=== PATIENT | female | born 1970 | race Caucasian/White ===

== ENCOUNTER 2017-10-09 14:15 | Emergency (ER) | payer BC ==
[~2017-10-09] VITALS: Ht 167.6 cm; Wt 81.6 kg
[2017-10-09] MEDS ORDERED: HYDR-2966 PO (14:17)
[2017-10-09] MEDS ORDERED: LISI5TAB25 PO (14:17)
[2017-10-09] MEDS ORDERED: ESTR-33 PO (14:18)
[2017-10-09] MEDS ORDERED: THYR60TA25 PO (14:18)
[2017-10-09] MEDS ORDERED: EMS NS 0.9%(*) 1000 ML BAG 1,000 ML IV ONE (14:25)
[2017-10-09] MEDS ORDERED: DIAZEPAM 10 MG/2 ML SYR IVP ONE (14:35)
--- NOTE | 2017-10-09 14:36 | ER Report ---
History and Physical Time Seen By MD: 14:24 Hx. of Stated Complaint: PT REPORTS LOWER BACK PAIN AND SPASM THAT BROUGHT HER TO HER KNEES AT HOME, 200 FENTANYL GIVEN IVP BY EMS HPI/ROS CHIEF COMPLAINT: Back pain HISTORY OF PRESENT ILLNESS: This is a 47-year-old female who presents to the emergency department for lower back pain via EMS. She states she was putting dishes in the manufacturing scheduler, then had a sudden onset of shearing lower back pain. She dropped to the ground and was unable to get up. Patient's and her sister tried to get her up but the pain was too intense and EMS was called and patient was transported to the ER for further evaluation. Patient did receive 200 g of IV fentanyl in route. Patient arrives alert and oriented she states her pain is okay right now but is starting to increase again. Patient denies saddle anesthesia, numbness or tingling, aches, chills, chest pain or shortness of breath. REVIEW OF SYSTEMS: Constitutional: No fever, no chills. Eyes: No discharge. ENT: No sore throat. Cardiovascular: No chest pain, no palpitations. Respiratory: No cough, no shortness of breath. Gastrointestinal: No abdominal pain, no vomiting. Genitourinary: No hematuria. Musculoskeletal: As above. Skin: No rashes. Neurological: No headache. Allergies: Coded Allergies: codeine (Verified Allergy, Unknown, ESOPHAGEAL SPASM, 10/09/17) Home Meds Active Scripts Ibuprofen (IBUPROFEN) 800 Mg Tablet, 1 TAB PO Q8H, #20 TAB Prov:MARISSA HUMPHREYS ALUMINA REFINERY OPERATOR-BC 10/09/17 Diazepam (VALIUM) 5 Mg Tablet, 5 MG PO 2-3XD, #15 TAB Prov:MARISSA HUMPHREYS ALUMINA REFINERY OPERATOR-BC 10/09/17 Reported Medications Thyroid,Pork (ARMOUR THYROID) 60 Mg Tablet, 60 MG PO QDAY 10/09/17 Estradiol (ESTRADIOL) 1 Mg Tablet, 1 MG PO QDAY 10/09/17 Lisinopril (LISINOPRIL) 5 Mg Tablet, 5 MG PO QDAY, TAB 10/09/17 Hydrochlorothiazide (HYDROCHLOROTHIAZIDE) 25 Mg Tablet, 1 TAB PO QDAY, TAB 10/09/17 Past Medical/Surgical History Patient has a past medical and surgical history of hypertension, wears glasses, hypothyroid, hysterectomy. Reviewed Nurses Notes: Yes Constitutional Vital Sign - Last 24 Hours 10/09/17 10/09/17 10/09/17 10/09/17 14:15 14:18 14:30 14:45 Temp 98.2 Pulse 75 73 70 74 Resp 16 B/P (MAP) 115/75 100/76 (84) Pulse Ox 90 91 96 O2 Delivery Room Air 10/09/17 10/09/17 16:00 16:02 Pulse 83 B/P (MAP) 101/64 (76) Pulse Ox 97 Intake and Output 10/09/17 10/09/17 10/10/17 15:00 23:00 07:00 Intake Total 1000 ml Balance 1000 ml Physical Exam General Appearance: The patient is alert, has no immediate need for airway protection and no signs of toxicity. Eyes: Pupils equal and round no pallor or injection. ENT, Mouth: Mucous membranes are moist. Respiratory: There are no retractions, lungs are clear to auscultation. Cardiovascular: Regular rate and rhythm, no murmurs, clicks or rubs. Gastrointestinal: Abdomen is soft and non tender, no masses, bowel sounds normal. Neurological: Alert and oriented 4. Moving all extremities. Following all commands. Focal neuro deficits. Skin: Warm and dry, no rashes. Musculoskeletal: Neck is supple non tender. Lumbar pain with palpation, no step -offs or obvious deformities. No ecchymosis. Muscle spasm to the right lumbar region. Extremities are nontender, nonswollen and have full range of motion. DIFFERENTIAL DIAGNOSIS: After history and physical exam differential diagnosis was considered for back pain including but not limited to muscular pain, herniated disc, spine fracture, intra-abdominal causes and urinary tract infection. Medical Decision Making EKG/Imaging Imaging [place] [facility] [place]: Sheila Ann : 1970 Visit/Account:[id number] Date of Sevice: 10/09/2017 LUMBAR SPINE 4 VIEWS Indication: Low back pain. Comparison: None Available Findings: AP, lateral, and bilateral obliques of the lumbar spine. Normal alignment, vertebral body height, and intervertebral disc height. No pars defects. No significant degenerative changes. Right upper quadrant surgical clips. Included soft tissues are otherwise unremarkable. IMPRESSION: Negative lumbar spine radiographs. Report Dictated By: Marissa Rodriguez MD at 10/09/2017 3:12 PM Report E-Signed By: Marissa Rodriguez MD at 10/09/2017 3:15 PM WSN:[id number] ED Course/Re-evaluation Clinical Indication for ER IV: IV Access ED Course The patient was admitted to room. A history of physical were obtained. Differential diagnoses were considered. An IV was started via EMS. A 1 L normal saline boluses given. 2.5 mg IV Valium given with improvement in pain. Lumbar x- ray showing no acute osseous abnormalities. I did review these results with the patient and her . I did tell the patient that given her presentation and the negative back x-ray that this is likely a muscle spasm. I did tell patient that we can go ahead and treat this as such with Valium at home, ibuprofen and physical therapy. The patient and her had no other questions or concerns at this time and were discharged home. Also told the patient to follow- up with her primary care provider for future needs. Decision to Disposition Date: Oct 09, 2017 Decision to Disposition Time: 15:48 Depart Departure Latest Vital Signs Vital Signs Date Time Temp Pulse Resp B/P (MAP) Pulse Ox O2 Delivery O2 Flow Rate FiO2 10/09/17 16:02 101/64 (76) 10/09/17 16:00 83 97 10/09/17 14:18 98.2 16 Room Air Impression: Primary Impression: Back pain Condition: Improved Disposition: HOME OR SELF-CARE New Scripts Ibuprofen (IBUPROFEN) 800 Mg Tablet 1 TAB PO Q8H, #20 TAB Prov: MARISSA HUMPHREYS ALUMINA REFINERY OPERATOR-BC 10/09/17 Diazepam (VALIUM) 5 Mg Tablet 5 MG PO 2-3XD, #15 TAB Prov: MARISSA HUMPHREYS ALUMINA REFINERY OPERATOR-BC 10/09/17 Departure Forms: ER Transition Record, Medications Reconciliation, Off Work/ School Form, School or Work Release?: Work Number of days to be released: 5 Patient Portal Information Patient Instructions: Acute Low Back Pain (ED) Additional Instructions: Drink plenty of water. Get plenty of rest. Take the medications as prescribed. No drinking alcohol or driving while taking the Valium. Take the Ibuprofen as indicated, can take Tylenol as needed for pain. Follow up with physial therapy. Follow up with your pcp as needed. Return to the ED for worsening symptoms. Problem Qualifiers Primary Impression: Back pain Back pain location: low back pain Chronicity: acute Back pain laterality: bilateral Sciatica presence: without sciatica Qualified Codes: M54.5 - Low back pain MARISSA HUMPHREYSP-BC Oct 09, 2017 14:36
--- NOTE | 2017-10-09 15:19 | RADIOLOGY IMAGING REPORT ---
FACILITY: [facility] PATIENT NAME: Sheila Ann : 1970 MR: [id number] V: [id number] EXAM DATE: ORDERING PHYSICIAN: MARISSA HUMPHREYS TECHNOLOGIST: Location: [facility] - [place] Patient: Sheila Ann : 1970 Visit/Account:[id number] Date of Sevice: 10/09/2017 LUMBAR SPINE 4 VIEWS Indication: Low back pain. Comparison: None Available Findings: AP, lateral, and bilateral obliques of the lumbar spine. Normal alignment, vertebral body height, and intervertebral disc height. No pars defects. No significant degenerative changes. Right upper quadrant surgical clips. Included soft tissues are otherwise unremarkable. IMPRESSION: Negative lumbar spine radiographs. Report Dictated By: Marissa Rodriguez MD at 10/09/2017 3:12 PM Report E-Signed By: Marissa Rodriguez MD at 10/09/2017 3:15 PM WSN:[id number]
[2017-10-09] MEDS ORDERED: DIA5 PO (15:53)
[2017-10-09] MEDS ORDERED: IBUP800T37 PO (15:53)
[2017-10-09 16:02] VITALS: BP 101/64
== END 2017-10-09 16:00 | disposition home or self-care (01) ==
LOC: ER 14:17
DX: M54.5 Low back pain (principal)
CPT/HCPCS: 72120; 96361; 96374; 99284; J3360

== ENCOUNTER → 2017-10-09 | Outpatient (CLI) | payer BC ==
[~2017-10-09] MED LIST: DIA5 PO; ESTR-33 PO; HYDR-2966 PO; IBUP800T37 PO; LISI5TAB25 PO; THYR60TA25 PO
== END ==
LOC: AMB 13:18
PROVIDERS: ATTEND Nurse Practitioner
DX: M54.5 Low back pain (principal)
CPT/HCPCS: A0425; A0427